=== PATIENT | male | born 1940 | race Caucasian/White ===

== ENCOUNTER 2018-01-25 06:32 | Inpatient (IN) | payer MEDICARE, BC ==
[~2018-01-25 06:32] MED LIST: Buffered Lidocaine 0.9% SYRIN* 5 ML/SYR SYRINGE INTRADERM ONE
[2018-01-25] MEDS ORDERED: ceFAZolin 2 GM PREMIX in ORs 2 GM/50 ML BAG IVPB ONE (07:08)
[2018-01-25] MEDS ORDERED: Bacitracin IV* 50,000 UNITS INJ ONE (08:00)
[2018-01-25] MEDS ORDERED: Lidocaine 1% MPF wEPI 200,000* 30 ML SDV ONE (08:00)
[2018-01-25] MEDS ORDERED: Thrombin 5,000 UNITS* 1 APPLIC KIT - topical use - TOPICAL ONE (08:00)
[2018-01-25] MEDS ORDERED: fentaNYL* 50 MCG/ML 2 ML VIAL (100 MCG VIAL) ONE ×4 (08:06→14:13)
[2018-01-25] MEDS ORDERED: Propofol* 10 MG/ML 20 ML BTL ONE ×2 (08:06→13:02)
[2018-01-25] MEDS ORDERED: Lidocaine 2% PF * 5 ML VIAL ONE (08:06)
[2018-01-25] MEDS ORDERED: Rocuronium* 10 MG/ML VIAL ONE ×2 (08:06→10:29)
[2018-01-25] MEDS ORDERED: Midazolam* 1 MG/ML 2 ML VIAL (2 MG) ONE ×2 (08:42→09:41)
[2018-01-25] MEDS ORDERED: Dexamethasone IV* 4 MG/ML 1 ML (4 MG) ONE (10:22)
[2018-01-25] MEDS ORDERED: Naloxone* 0.4 MG/ML 1 ML VIAL IV PRN (10:58)
[2018-01-25] MEDS ORDERED: DiMENhydriNATE IV* 50 MG/ML VIAL IV PUSH PRN (10:58)
[2018-01-25] MEDS ORDERED: Glycopyrrolate IV* 0.2 MG/ML 1 ML VIAL ONE (13:21)
[2018-01-25] MEDS ORDERED: Neostigmine Methylsulfate* 2 MG/2 ML SYRINGE ONE (13:21)
[2018-01-25] MEDS ORDERED: Ondansetron INJ* 2 MG/ML VIAL IV PRN (13:28)
[2018-01-25] MEDS ORDERED: Acetaminophen TAB* 325 MG PO PRN (13:28)
[2018-01-25] MEDS: fentaNYL* 50 MCG/ML 2 ML VIAL (100 MCG VIAL) IV PRN ×5 (14:00→14:13)
[2018-01-25] MEDS ORDERED: HYDROmorphone INJ1* 1 MG/ML SYRINGE ONE (15:21)
[2018-01-25] MEDS ORDERED: Ramipril CAP* 2.5 MG PO ONE (16:00)
[2018-01-25] MEDS ORDERED: Morphine VIAL* 4 MG/ML VIAL (1 ml vial) IV PRN ×2 (16:46→16:48)
[2018-01-25] MEDS: HYDROcodone/ACETAMIN 5-325 MG* 1 TAB PO PRN ×2 (16:49→21:32)
[2018-01-25 17:21] LABS: ABS Basophils 0 10^3/ul (0-0.2); ABS Eosinophils 0 10^3/ul (0-0.6); ABS Lymphocytes 0.7 10^3/ul (1.0-4.8); ABS Monocytes 0.4 10^3/ul (0-0.8); ABS Neutrophils 12.1 10^3/ul (1.5-7.7); ABS Nucleated RBC 0 10^3/ul; Eosinophil % 0 %; Hematocrit 39 % (42-52); Hemoglobin 12.9 g/dl (14.0-18.0); Mean Corpuscular HGB Conc 33 g/dl (31-36); Mean Corpuscular Hemoglobin 29 pg (27-31); Mean Corpuscular Volume 87 fL (80-94); Mean Platelet Volume 8.3 fL (7.4-10.4); Nucleated Red Blood Cells % 0; Platelet Count 238 10^3/ul (150-450); Red Blood Count 4.44 10^6/ul (4.00-5.40); Red Cell Distribution Width 15 % (10.5-15); White Blood Count 13.2 10^3/ul (3.5-10.8)
[2018-01-25 19:01] LABS: EGFR Non-African American 94.9 (>60)
[2018-01-25] MEDS ORDERED: Docusate CAP* 100 MG PO SCH (21:00)
--- NOTE | 2018-01-25 22:04 | PN ---
Progress Note - Progress Note Date of Service: 01/25/18 SOAP: Subjective: []Patient is doing very well. Tolerated procedure well. Voids, Tolerates PO well. RLE pain is resolved. Objective: [] VSS. Wounds s ,c, d AAOxe DIANE, CN II-XII grossly intact Motor 5/5 all extremities Sensory grossly intact to light touch Assessment: []77 yo m POD#0 Rtr L3-4 MIS TLIF Plan: []Monitor VS, Neurochecks Encourage ambulation. Denis Cali MD
[2018-01-25] MEDS: Morphine VIAL* 4 MG/ML VIAL (1 ml vial) IV PRN (23:03)
--- NOTE | 2018-01-25 23:53 | CONS ---
CC: Dr. Cali; Harvinder Guevara NP; Dr. Jimbo Tesfaye.* CONSULTATION REPORT: DATE OF CONSULT: 01/25/18 PRIMARY CARE PROVIDER: Harvinder Guevara NP MY ATTENDING PHYSICIAN WHILE IN THE HOSPITAL: Dr. Jaqueline Patel (report dictated by Jac Kidd NP). REQUESTING PHYSICIANS IN CONSULT: Dr. Tesfaye and Dr. Cali. REASON FOR MEDICAL CONSULTATION: Evaluation of bradycardia. HISTORY OF PRESENT ILLNESS: I will refer you to Dr. Cali' H and P for further details. In short, Mr. Hinton is a 77-year-old male patient. He has a history of CAD, PR, hypertension, hyperlipidemia, hypothyroidism, GERD who also has been having significant amount of lumbar radiculopathy and back pain. He sought care with Dr. Cali, grade 1 anterolisthesis of the lumbar spine was found. It was felt that he would benefit from a L3-4 TLIF. He underwent the procedure today, but postoperatively it was noted by Anesthesia that the patient did have episodes of his heart rate going down as well as in the upper 30s. His other vital signs had remained stable. His blood pressure had remained stable. However, there was concern for the bradycardia. The patient is evaluated in the PACU now. He states that his resting heart rate does run around 60, in fact it was alluded in his preop note that he is not on a beta cherise because of the bradycardia. He denies any chest pain or any shortness of breath. He states he does not feel lightheaded. He denies having any abdominal pain. He states he does not feel nauseated. He states that his biggest complaint was that he was having pain in his back, which is now better controlled with IV pain medication. He denies having any fevers or chills recently and no recent change in medications, but because of the bradycardia, we were asked to evaluate in consult. PAST MEDICAL HISTORY: Significant for: 1. CAD. 2. PR. 3. Hyperlipidemia. 4. Hypertension. 5. Hypothyroidism. 6. GERD. 7. CAD. PAST SURGICAL HISTORY: 1. He has had cardiac catheterization. 2. Laparoscopic cholecystectomy. 3. Bilateral total hip arthroplasty. 4. Hernia repair. 5. L3-4 TLIF done today. MEDICATIONS: Home meds according to the preop list include: 1. Oxycodone 5 mg every 4 hours as needed. 2. Ramipril 2.5 mg daily. 3. Protonix 40 mg daily. 4. Synthroid 100 mcg p.o. daily. 5. Lasix 40 mg daily. 6. Colace 100 mg p.o. at bedtime. 7. Lipitor 80 mg daily. 8. Aspirin 81 mg daily. 9. Alpha-lipoic acid 200 mg p.o. daily. ALLERGIES: Allergies to medications include NEOSPORIN and TAPE. FAMILY HISTORY: Both of his parents had strokes. Father had a history of hypertension. SOCIAL HISTORY: He is a former smoker. He does not drink alcohol. Surrogate decision maker is his . REVIEW OF SYSTEMS: There is no documented fever. He denied having any significant weight change. There was no double vision. He denies having any ear discharge. There was no rhinorrhea. There was no sore throat, no thyroid enlargement. He denied having any chest pain. There was no orthopnea, no nocturnal dyspnea. There was no abdominal pain. No nausea. No vomiting. No dysuria. No frequency. There was no seizure. No loss of consciousness. No pruritus. No skin ulcerations. Review of 14 systems completed. All others negative. PHYSICAL EXAMINATION: Vital Signs: Blood pressure 170/78, pulse 92, respirations 20, O2 sat 99%, temperature 96.8. Generally, at this time, Mr. Hinton is a 77- year-old male patient. He is sitting in the PACU bed. He does not appear to be in any acute distress. He appears to be well nourished and well developed. HEENT: Head atraumatic and normocephalic. Eyes: EOMs are intact. Sclerae anicteric and not pale. Neck was supple. Throat: Oral mucosa appears to be moist. No oropharyngeal erythema. Heart: Sounds S1, S2. He had a regular rate and rhythm. No murmurs, rubs, or gallops. Lungs: Clear to auscultation bilaterally. There was no wheezes, rales, or rhonchi. Abdomen: Soft. It was flat, nontender. Bowel sounds were present. Extremities: Pulses were 2+ throughout. He had 5/5 dorsi and plantar flexion in the lower extremities. He is moving upper extremities with 5/5 strength. Neurologically , he is awake, alert and oriented x3. No gross focal deficits. Skin is intact with the exception he has an incision to the lumbar spine, which is covered with a dressing; it is clean, dry, and intact. LABORATORY DATA/DIAGNOSTIC STUDIES: Preop WBC of 8.6, RBC of 4.49, hemoglobin of 13.1, hematocrit of 39, and platelet count of 255. INR 0.92. Sodium 139, potassium 4.6, chloride 103, bicarb 29, BUN 16, creatinine 0.84, glucose 94. Preop urine negative. He had a preoperative EKG, which revealed a normal sinus rhythm, rate of 61 with a PVC. Again, no ST elevations or T wave inversions noted. He also had a preop chest x-ray, which showed hyperinflation consistent with COPD with an atelectasis versus pleural or parenchymal scarring of the lungs bilaterally. Old medical records reviewed. ASSESSMENT AND PLAN: Mr. Hinton is a 77-year-old male patient coming into the neurosurgical services today for an elective L3-4 TLIF, and perioperatively, it was noted that he was bradycardic. We were asked to evaluate in consult. My recommendations at this point are: 1. L3-4 transforaminal lumbar interbody fusion. I will defer the management to Dr. Cali and his team. 2. Intraoperative bradycardia, again at this point, I think we can continue to monitor. His heart rate is in the 90s. It certainly could have been anesthetic related, could have been vasovagal related to the underlying procedure. We will avoid rate controlling agents. We will continue to monitor. I am going to place him on telemetry overnight. Should it persist, we could consider formal Cardiology consult. We will continue to monitor. 3. Hypothyroid. Continue his Synthroid. 4. Hyperlipidemia. Continue statin therapy. 5. Hypertension. Continue meds as prescribed. 6. Gastroesophageal reflux disease. Continue PPI therapy. 7. Coronary artery disease. He is on statin therapy. He is not on a beta cherise because of bradycardia in the past. We will hold, I would recommend getting him back on his aspirin when it is deemed safe by Dr. Cali and his team. 8. DVT prophylaxis: Deferred to the primary team. 9. Code status: Full code. 10. Fluids, electrolytes, and nutrition. I would recommend a heart-healthy diet. TIME SPENT: Time spent on the admission was 60 minutes. Greater than half that time was spent [id number] with the patient obtaining my history and physical, the other half time was spent going over the plan of care with the patient, implementing the plan of care. I did discuss the plan of care with my attending, Dr. Patel. She is in agreement. JAC KIDD, CUSTOMER EXPERIENCE SPECIALIST [id number]/CPS #: [id number] JUAN
[2018-01-26] MEDS: HYDROcodone/ACETAMIN 5-325 MG* 1 TAB PO PRN ×3 (01:53→10:57)
[2018-01-26] MEDS: Morphine VIAL* 4 MG/ML VIAL (1 ml vial) IV PRN ×4 (04:16→16:33)
[2018-01-26] MEDS: Levothyroxine TAB* 100 MCG TAB PO SCH (05:50)
[2018-01-26] MEDS ORDERED: Magnesium Sulfate 2 GM IV* 2 GM/50 ML BAG IVPB ONE (05:56)
--- NOTE | 2018-01-26 07:08 | OP ---
DATE OF SURGERY: 01/25/18 - ROOM #343 DATE OF : 38 SURGEON: Leatha Cali MD. SENIOR MARKETING SPECIALIST: MOJGAN Berrios. The case was done with assistance of a surgical PA because of the complexity of the case. ANESTHESIA: General. PRE-OP DIAGNOSES: Degenerative disk disease and spondylolisthesis at L3-4. POST-OP DIAGNOSES: Degenerative disk disease and spondylolisthesis at L3-4. OPERATIVE PROCEDURE: The patient underwent right L3-4 minimal invasive TLIF with PEEK interbody expandable cage with local bone graft, iliac crest autograft from a separate incision, and DBX with bilateral pedicle screws at L3 and L4 with stereotactic navigation. ESTIMATED BLOOD LOSS: 40 cc. COMPLICATIONS: None. SUMMARY: The patient is a very pleasant 77-year-old gentleman with complaints of back pain radiating to mostly of the right lower extremity with MRI findings consisting with degenerative disk at L3-4 with grade 1 spondylolisthesis and significant canal stenosis and disk herniation. The patient was offered the option of surgical intervention after failing conservative modalities. After explaining expectations, limitations, and possible complication of the procedure with the patient and his family including his and his son with complications including, but not limited to, bleeding, infection, risk of injury to adjacent structures, coma, paralysis, , need for additional procedure, anesthesia risk, stroke, blindness, cancer, instability, hardware failure, adjacent level disease, pseudoarthrosis, proximal junctional kyphosis, spinal fluid leak, need for additional procedures, anesthesia risk. The patient was agreeable to proceed with surgery. Informed consent was obtained. The patient understood that his condition may not improve and in fact may get worse after the surgery and that he may need to have additional procedure in the future. He also understood that the operative plan may be modified according to intraoperative findings and conditions and that he may require additional procedures in the future, possible prolonged ICU course, and need for tracheostomy, gastrostomy, or similar procedures. DESCRIPTION OF PROCEDURE: The patient was brought to the operating room and was placed under general anesthesia by the anesthesia team. He was carefully positioned prone on the Wellington table and all bony prominences were meticulously padded. His skin was prepped and draped in the standard fashion and after appropriate surgical pause and patient identification, a small incision over the left iliac crest was performed with a #10 surgical blade after infiltrating the skin with local anesthetic. The incision was carried down with Bovie cautery and the Corex needle was inserted with the assistance of a Jamshidi needle and wire. Autologous bone graft from the iliac crest was then harvested and the navigation star pin was inserted through the same incision and secured in the iliac crest. Intraoperative O-arm imaging was obtained and the patient's data was transferred into the navigation platform. Under stereotactic navigation the projection of the pedicle screw projectors were marked on the skin and 2 paramedian incisions over the level of L3-4 were marked on the skin. The skin was infiltrated with local anesthetic and #10 surgical blade was used to incise the right side first and then the left. Under stereotactic navigation the pedicles were canalized at L3 and L4 bilaterally and [employer] ATS 6.5 x 45 mm screws were placed in all 4 pedicles. Then attention was placed to perform the arthrodesis part of the procedure. With the use of navigated dilators a 22 mm METRx tubular retractor was introduced into the field and right hemilamina of L3 and the L3-4 facet was exposed after removing a small amount of residual paraspinal musculature. High speed drill was used to perform a laminectomy extending the midline and also a medial facetectomy. The ligament flavum was gently elevated and the dura was exposed in both sides of the midline. Pedicle of L4 on the right was skeletonized in the medial and superior aspect and after gently retracting the thecal sac medially along with the nerve root a standard diskectomy was performed after incising the annulus fibrosus with #15 surgical blade. Pituitary rongeurs were used to perform the diskectomy while the patient's disk space was prepared in standard fashion with serial dilators, Kerrison punches, and curettes. After of the end plates an ELEVATE expandable PEEK with titanium coated interbody spacer from [employer] with 9 to 15 mm height x 28 mm length was inserted and expanded after been filled with locally harvested bone graft, DBX, and iliac crest bone graft while the rest of the bone graft material was packed into the disk space prior to insertion of the cage. After the confirmation of meticulous hemostasis and copious irrigation the tubular retractor was gently removed and the dorsal fascia was approximated with interrupted 0 Vicryl sutures then two cobalt chrome rods were inserted through the same incisions and secured in place with screw head caps. Intraoperative O- arm imaging was then obtained and confirmed excellent placement of all hardware. The inserters as well as the extenders of the screws were removed after the screw head caps were finally tightened and after removing off of the navigation star the wounds were copiously irrigated and after confirmation of meticulous hemostasis and meticulous inspection the dorsal fascial defect was approximated with 0 interrupted Vicryl sutures while the subcutaneous tissue was approximated with 2-0 interrupted Vicryl sutures. The wounds were covered with Dermabond. At the end of the procedure all counts were reported to be correct. The patient remained hemodynamically stable throughout the case. I was present, scrubbed for the entirety of the case. The case was done with assistance of surgical PA because of the complexity of the case. The patient was then turned supine, was extubated, and was transferred to Recovery in excellent condition, moving all extremities well. [id number]/CPS #: [id number] JUAN
[2018-01-26] MEDS: Ramipril CAP* 2.5 MG PO SCH (08:09)
[2018-01-26] MEDS: Atorvastatin* 80 MG TAB PO SCH (08:10)
[2018-01-26] MEDS: Omeprazole CAP* 20 MG PO SCH (08:10)
[2018-01-26] MEDS ORDERED: Furosemide TAB* 40 MG PO SCH (09:00)
[2018-01-26] MEDS ORDERED: oxyCODONE TAB* 5 MG TAB PO PRN ×2 (12:41→12:42)
[2018-01-26] MEDS ORDERED: Cyclobenzaprine TAB* 10 MG PO PRN (12:42)
--- NOTE | 2018-01-26 16:41 | PN ---
Subjective Date of Service: 01/26/18 Interval History: SR with occasional PVCs on tele. Resting in bed on exam Family at bedside Nurse reports back pain is not controlled with Loretto 2 tabs as patient is often needing morphine IV. Patient reports he usually takes oxycodone at home for back pain. Reports he takes 1 to 3 tabs of 5 mg oxycodone up to 3 times a day. Urinating without difficulty. Last BM yesterday Denies cp, sob, palpitations, n/v/d, numbness/tingling, weakness, lightheadedness. Objective Active Medications: Acetaminophen (Tylenol Tab*) 650 mg PO Q4H PRN PRN Reason: PAIN Atorvastatin Calcium (Lipitor*) 80 mg PO QAM [facility] Last Admin: 01/26/18 08:10 Dose: 80 mg Cyclobenzaprine HCl (Flexeril Tab*) 10 mg PO BID PRN PRN Reason: PAIN Last Admin: 01/26/18 16:04 Dose: 10 mg Docusate Sodium (Colace Cap*) 200 mg PO BEDTIME [facility] Levothyroxine Sodium (Synthroid Tab*) 100 mcg PO DAILY@0600 [facility] Last Admin: 01/26/18 05:50 Dose: 100 mcg Magnesium Hydroxide (Milk Of Magnesia Liq*) 30 ml PO DAILY PRN PRN Reason: CONSTIPATION Morphine Sulfate (Morphine Vial*) 2 mg IV ONCE PRN PRN Reason: PAIN Last Admin: 01/25/18 16:56 Dose: 2 mg Morphine Sulfate (Morphine Vial*) 2 mg IV Q4H PRN PRN Reason: PAIN Last Admin: 01/26/18 16:33 Dose: 2 mg Omeprazole (Prilosec Cap*) 20 mg PO DAILY@0730 [facility] Last Admin: 01/26/18 08:10 Dose: 20 mg Ondansetron HCl (Zofran Inj*) 4 mg IV Q6H PRN PRN Reason: NAUSEA/VOMITING Oxycodone HCl (Roxycodone Tab*) 5 mg PO Q6H PRN PRN Reason: PAIN Oxycodone HCl (Roxycodone Tab*) 10 mg PO Q6H PRN PRN Reason: PAIN Last Admin: 01/26/18 13:35 Dose: 10 mg Ramipril (Altace Cap*) 2.5 mg PO QAM [facility] Last Admin: 01/26/18 08:09 Dose: 2.5 mg Vital Signs - 8 hr 01/26/18 01/26/18 01/26/18 10:57 11:49 11:54 Temperature 98.1 F Pulse Rate 79 Respiratory 16 16 20 Rate Blood Pressure 156/66 (mmHg) O2 Sat by Pulse 100 Oximetry 01/26/18 01/26/18 01/26/18 13:35 15:58 16:04 Temperature Pulse Rate Respiratory 16 16 16 Rate Blood Pressure (mmHg) O2 Sat by Pulse Oximetry 01/26/18 16:33 Temperature Pulse Rate Respiratory 16 Rate Blood Pressure (mmHg) O2 Sat by Pulse Oximetry Oxygen Devices in Use Now: None Appearance: Comfortable, cooperative, NAD Eyes: PERRLA Ears/Nose/Mouth/Throat: Mucous Membranes Moist Neck: NL Appearance and Movements; NL JVP Respiratory: Symmetrical Chest Expansion and Respiratory Effort, Clear to Auscultation Cardiovascular: NL Sounds; No Murmurs; No JVD, RRR, No Edema Abdominal: NL Sounds; No Tenderness; No Distention Extremities: No Edema Skin: No Rash or Ulcers Neurological: Alert and Oriented x 3, NL Sensation, NL Muscle Strength and Tone Nutrition: Taking PO's Result Diagrams: 01/25/18 17:12 01/25/18 17:00 Additional Lab and Data: Laboratory Results - last 24 hr 01/25/18 01/25/18 17:00 17:12 WBC 13.2 H RBC 4.44 Hgb 12.9 L Hct 39 L MCV 87 MCH 29 MCHC 33 RDW 15 Plt Count 238 MPV 8.3 Neut % (Auto) 91.7 Lymph % (Auto) 5.0 Deuel % (Auto) 3.0 Eos % (Auto) 0 Baso % (Auto) 0.3 Absolute Neuts (auto) 12.1 H Absolute Lymphs (auto) 0.7 L Absolute Monos (auto) 0.4 Absolute Eos (auto) 0 Absolute Basos (auto) 0 Absolute Nucleated RBC 0 Nucleated RBC % 0 Sodium 139 Potassium 4.5 Chloride 104 Carbon Dioxide 26 Anion Gap 9 BUN 17 Creatinine 0.79 Est GFR ( Amer) 114.8 Est GFR (Non-Af Amer) 94.9 BUN/Creatinine Ratio 21.5 H Glucose 148 H Calcium 9.1 Magnesium 1.7 L TSH 0.54 Assess/Plan/Problems-Billing Assessment: 77 year old male pmh CAD, [place], hypertension, hyperlipidema, hypothyroid, gerd; who is s/p L3-L4 TLIF who was noted to be bradycardic june operatively therefore we are consulting - Patient Problems (1) Anterolisthesis Comment: - POD #1 L3- L4 TLIF - Up walking with assistance - Pain medications changed from Loretto to Oxycodone (okay'd by Neurosurgeon) (2) Bradycardia Comment: - SR in the 70s with occasional PVCs on tele - Continue tele (3) Hypertension Comment: - Continue meds as prescribed (4) Hyperlipidemia Comment: - Cont statin (5) CAD (coronary artery disease) Comment: - Hx of [place] with 3 stents - Per neuro; okay to restart ASA 3 to 5 days post op (6) Hypothyroid Comment: - Cont medications as prescribed (7) DVT prophylaxis Comment: - SCDs in place - Patient ambulating (8) Full code status Comment: - Full Code Status and Disposition: Thank you for allowing us to participate in this patient's care. Attending: Jaqueline Patel
--- NOTE | 2018-01-26 16:58 | PN ---
Progress Note - Progress Note Date of Service: 01/26/18 SOAP: Subjective: [] No events ON. Patient is doing very well. Tolerated procedure well yesterday. Voids, Tolerates PO well. Preop RLE pain is resolved. Objective: []VSS. Wounds s ,c, d AAOx3 DIANE, CN II-XII grossly intact Motor 5/5 all extremities Sensory grossly intact to light touch Assessment: []77 yo m POD#1 Rtr L3-4 MIS TLIF Plan: []Monitor VS, Neurochecks Encourage ambulation. Pain control. Muscle relaxants. XR reveals good placement of hardware, good alignment of his lumbar spine. PT DC planning Appreciate IM care. Denis Cali MD
[2018-01-26] MEDS ORDERED: Diazepam TAB(*) 5 MG ONE (18:36)
[2018-01-26] MEDS ORDERED: oxyCODONE/Acetamin 5/325 MG* TAB ONE (18:36)
[2018-01-26] MEDS ORDERED: Morphine VIAL* 4 MG/ML VIAL (1 ml vial) IV PRN (19:01)
[2018-01-26] MEDS ORDERED: oxyCODONE/Acetamin 5/325 MG* TAB PO PRN (19:02)
[2018-01-26] MEDS: Docusate CAP* 100 MG PO SCH (20:07)
[2018-01-26] MEDS: oxyCODONE/Acetamin 5/325 MG* TAB PO PRN (20:11)
[2018-01-27] MEDS: oxyCODONE/Acetamin 5/325 MG* TAB PO PRN ×6 (00:15→20:20)
[2018-01-27] MEDS: Diazepam TAB(*) 5 MG PO PRN ×3 (03:05→19:31)
[2018-01-27] MEDS: Levothyroxine TAB* 100 MCG TAB PO SCH (05:44)
[2018-01-27 05:57] LABS: Hematocrit 34 % (42-52); Hemoglobin 11.3 g/dl (14.0-18.0); Mean Corpuscular HGB Conc 33 g/dl (31-36); Mean Corpuscular Hemoglobin 29 pg (27-31); Mean Corpuscular Volume 88 fL (80-94); Mean Platelet Volume 8.2 fL (7.4-10.4); Platelet Count 177 10^3/ul (150-450); Red Blood Count 3.87 10^6/ul (4.00-5.40); Red Cell Distribution Width 15 % (10.5-15); White Blood Count 8.7 10^3/ul (3.5-10.8)
[2018-01-27 06:15] LABS: EGFR Non-African American 114.7 (>60)
[2018-01-27 06:42] LABS: Monocytes % 2 %
[2018-01-27 06:51] LABS: ABS Basophils 0.1 10^3/ul (0-0.2); ABS Eosinophils 0.2 10^3/ul (0-0.6); ABS Lymphocytes 1.3 10^3/ul (1.0-4.8); ABS Monocytes 0.9 10^3/ul (0-0.8); ABS Neutrophils 6.4 10^3/ul (1.5-7.7); ABS Nucleated RBC 0 10^3/ul
[2018-01-27] MEDS: Magnesium Hydroxide LIQ* 30 ML UDC PO PRN (08:02)
[2018-01-27] MEDS: Omeprazole CAP* 20 MG PO SCH (08:02)
[2018-01-27] MEDS: Atorvastatin* 80 MG TAB PO SCH (08:02)
[2018-01-27] MEDS: Ramipril CAP* 2.5 MG PO SCH (08:02)
--- NOTE | 2018-01-27 12:39 | PN ---
Progress Note - Progress Note Date of Service: 01/27/18 SOAP: Subjective: [] No events ON. Patient is doing very well. Voids, Tolerates PO well. Preop RLE pain is resolved. Some back pain at incision site. Has brace. Objective: [] VSS. Wounds s ,c, d AAOx3 DIANE, CN II-XII grossly intact Motor 5/5 all extremities Sensory grossly intact to light touch Assessment: []77 yo m POD#2 Rtr L3-4 MIS TLIF Plan: [] Monitor VS, Neurochecks Encourage ambulation. Pain control. Muscle relaxants. PT DC planning. Appreciate IM care. Denis Cali MD
--- NOTE | 2018-01-27 15:11 | PN ---
Subjective Date of Service: 01/27/18 Interval History: SR with occasional PVCs on tele. Average rate 77 bpm Resting in reclinder chair on assessment with family at bedside Reports back pain is mildly improved today. Denies dizziness, lightheadedness at rest or with position change, cp, palpitations, sob, weakness, n/v/d. Objective Active Medications: Acetaminophen (Tylenol Tab*) 650 mg PO Q4H PRN PRN Reason: PAIN Atorvastatin Calcium (Lipitor*) 80 mg PO QAM [facility] Last Admin: 01/27/18 08:02 Dose: 80 mg Diazepam (Valium Tab(*)) 5 mg PO Q8H PRN PRN Reason: MUSCLE SPASMS Last Admin: 01/27/18 11:35 Dose: 5 mg Docusate Sodium (Colace Cap*) 200 mg PO BEDTIME [facility] Last Admin: 01/26/18 20:07 Dose: 200 mg Levothyroxine Sodium (Synthroid Tab*) 100 mcg PO DAILY@0600 [facility] Last Admin: 01/27/18 05:44 Dose: 100 mcg Magnesium Hydroxide (Milk Of Magnzenaida Liq*) 30 ml PO DAILY PRN PRN Reason: CONSTIPATION Last Admin: 01/27/18 08:02 Dose: 30 ml Morphine Sulfate (Morphine Vial*) 2 mg IV ONCE PRN PRN Reason: PAIN Last Admin: 01/25/18 16:56 Dose: 2 mg Morphine Sulfate (Morphine Vial*) 1 mg IV Q2H PRN PRN Reason: PAIN Last Admin: 01/26/18 19:56 Dose: 1 mg Omeprazole (Prilosec Cap*) 20 mg PO DAILY@0730 [facility] Last Admin: 01/27/18 08:02 Dose: 20 mg Ondansetron HCl (Zofran Inj*) 4 mg IV Q6H PRN PRN Reason: NAUSEA/VOMITING Oxycodone/Acetaminophen (Percocet 5/325 Tab*) 1 tab PO Q4H PRN PRN Reason: PAIN Oxycodone/Acetaminophen (Percocet 5/325 Tab*) 2 tab PO Q4H PRN PRN Reason: PAIN Last Admin: 01/27/18 12:35 Dose: 2 tab Ramipril (Altace Cap*) 2.5 mg PO QAM [facility] Last Admin: 01/27/18 08:02 Dose: 2.5 mg Vital Signs - 8 hr 01/27/18 01/27/18 01/27/18 07:31 08:00 08:02 Temperature 98.4 F Pulse Rate 72 Respiratory 16 18 18 Rate Blood Pressure 152/53 (mmHg) O2 Sat by Pulse 96 Oximetry 01/27/18 01/27/18 01/27/18 09:31 10:02 11:33 Temperature 98.2 F Pulse Rate 80 Respiratory 18 18 16 Rate Blood Pressure 145/59 (mmHg) O2 Sat by Pulse 96 Oximetry 01/27/18 01/27/18 01/27/18 11:35 12:35 14:24 Temperature Pulse Rate Respiratory 18 18 18 Rate Blood Pressure (mmHg) O2 Sat by Pulse Oximetry 01/27/18 14:25 Temperature Pulse Rate Respiratory 18 Rate Blood Pressure (mmHg) O2 Sat by Pulse Oximetry Oxygen Devices in Use Now: None Appearance: Comfortable, NAD Eyes: PERRLA Ears/Nose/Mouth/Throat: Clear Oropharnyx, Mucous Membranes Moist Neck: NL Appearance and Movements; NL JVP Respiratory: Symmetrical Chest Expansion and Respiratory Effort, Clear to Auscultation Cardiovascular: NL Sounds; No Murmurs; No JVD, RRR, No Edema Abdominal: NL Sounds; No Tenderness; No Distention Lymphatic: No Cervical Adenopathy Extremities: No Edema Skin: No Rash or Ulcers Neurological: Alert and Oriented x 3 Nutrition: Taking PO's Result Diagrams: 01/27/18 05:40 01/27/18 05:40 Additional Lab and Data: Laboratory Results - last 24 hr 01/27/18 01/27/18 05:40 05:40 WBC 8.7 RBC 3.87 L Hgb 11.3 L Hct 34 L MCV 88 MCH 29 MCHC 33 RDW 15 Plt Count 177 MPV 8.2 Neut % (Auto) Not Reportable Lymph % (Auto) Not Reportable [place] % (Auto) Not Reportable Eos % (Auto) Not Reportable Baso % (Auto) Not Reportable Absolute Neuts (auto) 6.4 Absolute Lymphs (auto) 1.3 Absolute Monos (auto) 0.9 H Absolute Eos (auto) 0.2 Absolute Basos (auto) 0.1 Absolute Nucleated RBC 0 Neutrophils % 77 Lymphocytes % 19 Monocytes % 2 Eosinophils % 1 Basophils % 1 Nucleated RBC % Not Reportable Nucleated RBCs/100 WBC 0 Normal RBC Morphology Not Reportable Microcytosis 1+ Mitchel Cells 2+ Sodium 137 Potassium 3.9 Chloride 105 Carbon Dioxide 29 Anion Gap 3 BUN 12 Creatinine 0.67 Est GFR ( Amer) 138.8 Est GFR (Non-Af Amer) 114.7 BUN/Creatinine Ratio 17.9 Glucose 106 H Calcium 8.6 Magnesium 2.0 Assess/Plan/Problems-Billing Assessment: 77 year old male pmh CAD, [place], hypertension, hyperlipidema, hypothyroid, gerd; who is s/p L3-L4 TLIF who was noted to be bradycardic june operatively therefore we are consulting - Patient Problems (1) Anterolisthesis Comment: - POD #2 L3- L4 TLIF - Up walking with assistance - Management per neurosurgeon and team (2) Bradycardia Comment: - SR in the 70s with occasional PVCs on tele - May discontinue tele as patient has not been bradycardic and is asymptomatic (3) Hypertension Comment: - Continue meds as prescribed (4) Hyperlipidemia Comment: - Cont statin (5) CAD (coronary artery disease) Comment: - Hx of [place] with 3 stents - Per neuro; okay to restart ASA 3 to 5 days post op (6) Hypothyroid Comment: - Cont medications as prescribed (7) Abnormal CBC Comment: - CBC minorly abnormal today with multiple "not reportable" results. I suspect this is a technical error therefore will be repeated tomorrow (8) DVT prophylaxis Comment: - SCDs in place - Patient ambulating (9) Full code status Comment: - Full Code Status and Disposition: Thank you for allowing us to participate in this patient's care. Attending: Jamye Rodgers
[2018-01-27] MEDS: Docusate CAP* 100 MG PO SCH (19:31)
[2018-01-28] MEDS: oxyCODONE/Acetamin 5/325 MG* TAB PO PRN ×6 (01:14→22:03)
[2018-01-28] MEDS: Diazepam TAB(*) 5 MG PO PRN ×3 (03:18→20:06)
[2018-01-28] MEDS: Levothyroxine TAB* 100 MCG TAB PO SCH (05:21)
[2018-01-28 06:18] LABS: ABS Basophils 0 10^3/ul (0-0.2); ABS Eosinophils 0.2 10^3/ul (0-0.6); ABS Lymphocytes 1.2 10^3/ul (1.0-4.8); ABS Monocytes 0.8 10^3/ul (0-0.8); ABS Neutrophils 5.6 10^3/ul (1.5-7.7); ABS Nucleated RBC 0 10^3/ul; Eosinophil % 3.1 %; Hematocrit 34 % (42-52); Hemoglobin 11.3 g/dl (14.0-18.0); Lymphocyte % 15.1 %; Mean Corpuscular HGB Conc 34 g/dl (31-36); Mean Corpuscular Hemoglobin 30 pg (27-31); Mean Corpuscular Volume 88 fL (80-94); Mean Platelet Volume 8.4 fL (7.4-10.4); Nucleated Red Blood Cells % 0.1; Platelet Count 162 10^3/ul (150-450); Red Blood Count 3.83 10^6/ul (4.00-5.40); Red Cell Distribution Width 15 % (10.5-15); White Blood Count 7.8 10^3/ul (3.5-10.8)
[2018-01-28] MEDS: Omeprazole CAP* 20 MG PO SCH (07:57)
[2018-01-28] MEDS: Atorvastatin* 80 MG TAB PO SCH (07:57)
[2018-01-28] MEDS: Ramipril CAP* 2.5 MG PO SCH (07:57)
--- NOTE | 2018-01-28 16:44 | PN ---
Subjective Date of Service: 01/28/18 Interval History: Resting in bed on assessment with at bedside Noted to have elevated BP this morning at 170/75. Repeat BP this afternoon 112/ 58. Patient reports he was in pain this morning. Patient is no longer on tele, but no bradycardia noted on vital sign assessments. Patient denies lightheadedness, dizziness, cp, palpitations, n/v/d, visual changes, leg/calf pain, sob. Reports back pain is better controlled today. Objective Active Medications: Acetaminophen (Tylenol Tab*) 650 mg PO Q4H PRN PRN Reason: PAIN Atorvastatin Calcium (Lipitor*) 80 mg PO QAM [facility] Last Admin: 01/28/18 07:57 Dose: 80 mg Diazepam (Valium Tab(*)) 5 mg PO Q8H PRN PRN Reason: MUSCLE SPASMS Last Admin: 01/28/18 11:57 Dose: 5 mg Docusate Sodium (Colace Cap*) 200 mg PO BEDTIME [facility] Last Admin: 01/27/18 19:31 Dose: 200 mg Levothyroxine Sodium (Synthroid Tab*) 100 mcg PO DAILY@0600 [facility] Last Admin: 01/28/18 05:21 Dose: 100 mcg Magnesium Hydroxide (Milk Of Magnesia Liq*) 30 ml PO DAILY PRN PRN Reason: CONSTIPATION Last Admin: 01/27/18 08:02 Dose: 30 ml Morphine Sulfate (Morphine Vial*) 2 mg IV ONCE PRN PRN Reason: PAIN Last Admin: 01/25/18 16:56 Dose: 2 mg Morphine Sulfate (Morphine Vial*) 1 mg IV Q2H PRN PRN Reason: PAIN Last Admin: 01/26/18 19:56 Dose: 1 mg Omeprazole (Prilosec Cap*) 20 mg PO DAILY@0730 [facility] Last Admin: 01/28/18 07:57 Dose: 20 mg Ondansetron HCl (Zofran Inj*) 4 mg IV Q6H PRN PRN Reason: NAUSEA/VOMITING Oxycodone/Acetaminophen (Percocet 5/325 Tab*) 1 tab PO Q4H PRN PRN Reason: PAIN Oxycodone/Acetaminophen (Percocet 5/325 Tab*) 2 tab PO Q4H PRN PRN Reason: PAIN Last Admin: 01/28/18 13:34 Dose: 2 tab Ramipril (Altace Cap*) 2.5 mg PO QAM [facility] Last Admin: 01/28/18 07:57 Dose: 2.5 mg Vital Signs - 8 hr 01/28/18 01/28/18 01/28/18 09:24 11:34 11:57 Temperature 97.7 F Pulse Rate 76 Respiratory 18 16 18 Rate Blood Pressure 112/58 (mmHg) O2 Sat by Pulse 96 Oximetry 01/28/18 01/28/18 01/28/18 13:34 13:36 16:26 Temperature Pulse Rate Respiratory 20 18 18 Rate Blood Pressure (mmHg) O2 Sat by Pulse Oximetry 01/28/18 16:27 Temperature Pulse Rate Respiratory 18 Rate Blood Pressure (mmHg) O2 Sat by Pulse Oximetry Oxygen Devices in Use Now: None Appearance: Comfortable, NAD Eyes: No Scleral Icterus Ears/Nose/Mouth/Throat: Mucous Membranes Moist Neck: NL Appearance and Movements; NL JVP Respiratory: Symmetrical Chest Expansion and Respiratory Effort, Clear to Auscultation Cardiovascular: NL Sounds; No Murmurs; No JVD, RRR, No Edema Abdominal: NL Sounds; No Tenderness; No Distention Lymphatic: No Cervical Adenopathy Extremities: No Edema, - - Calfs supple Skin: No Rash or Ulcers Neurological: Alert and Oriented x 3, NL Muscle Strength and Tone Nutrition: Taking PO's Result Diagrams: 01/28/18 05:36 01/27/18 05:40 Additional Lab and Data: Laboratory Results - last 24 hr 01/28/18 05:36 WBC 7.8 RBC 3.83 L Hgb 11.3 L Hct 34 L MCV 88 MCH 30 MCHC 34 RDW 15 Plt Count 162 MPV 8.4 Neut % (Auto) 71.7 Lymph % (Auto) 15.1 [place] % (Auto) 9.9 Eos % (Auto) 3.1 Baso % (Auto) 0.2 Absolute Neuts (auto) 5.6 Absolute Lymphs (auto) 1.2 Absolute Monos (auto) 0.8 Absolute Eos (auto) 0.2 Absolute Basos (auto) 0 Absolute Nucleated RBC 0 Nucleated RBC % 0.1 Assess/Plan/Problems-Billing Assessment: 77 year old male pmh CAD, [place], hypertension, hyperlipidema, hypothyroid, gerd; who is s/p L3-L4 TLIF who was noted to be bradycardic june operatively therefore we are consulting - Patient Problems (1) Anterolisthesis Comment: - POD #3 L3- L4 TLIF - Up walking with assistance - Management per neurosurgeon and team (2) Bradycardia Comment: - Discontinued tele - Patient has not been bradycardic and is asymptomatic (3) Hypertension Comment: - Continue meds as prescribed (4) Hyperlipidemia Comment: - Cont statin (5) CAD (coronary artery disease) Comment: - Hx of [place] with 3 stents - Per neuro; okay to restart ASA 3 to 5 days post op (6) Hypothyroid Comment: - Cont medications as prescribed (7) Abnormal CBC Comment: - Repeat CBC wnl (8) DVT prophylaxis Comment: - SCDs in place - Patient ambulating (9) Full code status Comment: - Full Code Status and Disposition: Thank you for allowing us to participate in this patient's care. We will be dry wall installations mechanic for future consulting on this patient as needed. Attending: Jayme Rodgers
[2018-01-28] MEDS: Docusate CAP* 100 MG PO SCH (20:06)
--- NOTE | 2018-01-29 | PN ---
Progress Note - Progress Note Date of Service: 01/28/18 SOAP: Subjective: []Patient was seen earlier. No events ON. Patient is doing very well. Voids, Tolerates PO well. Has brace. Objective: []VSS. Wounds s ,c, d AAOx3 DIANE, CN II-XII grossly intact Motor 5/5 all extremities Sensory grossly intact to light touch Assessment: []77 yo m POD#3 Rtr L3-4 MIS TLIF Plan: []Monitor VS, Neurochecks Encourage ambulation. Pain control. Muscle relaxants. PT DC planning. DC when pain is under control. Consider rehab eval if family support will not be adequate for patient to be able to DC home Appreciate IM care. Denis Cali MD
[2018-01-29] MEDS: oxyCODONE/Acetamin 5/325 MG* TAB PO PRN ×4 (02:06→22:04)
[2018-01-29] MEDS: Levothyroxine TAB* 100 MCG TAB PO SCH (05:43)
[2018-01-29] MEDS: Diazepam TAB(*) 5 MG PO PRN ×2 (05:43→18:02)
--- NOTE | 2018-01-29 08:21 | PN ---
Progress Note - Progress Note Date of Service: 01/29/18 SOAP: Subjective: [S/p TLIF L3-4, POD #4. Feeling well although complains of back pain. Ambulates with walker. Has difficulty getting up out of bed without use of trapeeze. Denies nausea, headache. ] Objective: [ Vital Signs: Temp Pulse Resp BP Pulse Ox 98.1 F 74 18 134/57 96 01/29/18 03:15 01/29/18 03:15 01/29/18 05:43 01/29/18 03:15 01/29/18 03:15 General: Alert and laying comfortably in bed, NAD Neuro: Motor and sensory intact. Incision: Intact, no swelling, dressing in place. ] Assessment: [Satisfactory post-op. Will likely need rehab] Plan: [1. PMRU referral 2. PT, OT 3. Encourage ambulation 4. Continue pain management]
[2018-01-29] MEDS: Ramipril CAP* 2.5 MG PO SCH (09:27)
[2018-01-29] MEDS: Omeprazole CAP* 20 MG PO SCH (09:27)
[2018-01-29] MEDS: Atorvastatin* 80 MG TAB PO SCH (09:27)
[2018-01-29] MEDS: Docusate CAP* 100 MG PO SCH ×2 (11:27→22:05)
[2018-01-29] MEDS: Magnesium Hydroxide LIQ* 30 ML UDC PO PRN (11:28)
[2018-01-30] MEDS: Diazepam TAB(*) 5 MG PO PRN (02:23)
[2018-01-30] MEDS: oxyCODONE/Acetamin 5/325 MG* TAB PO PRN ×4 (05:56→20:30)
[2018-01-30] MEDS: Levothyroxine TAB* 100 MCG TAB PO SCH (05:57)
--- NOTE | 2018-01-30 07:58 | PN ---
Progress Note - Progress Note Date of Service: 01/30/18 SOAP: Subjective: [S/p L3-4 TLIF, POD #5. Patient feeling well, complains of back pain. Able to ambulate well, has difficulty getting up out of bed. Pre-op symptoms improving. Denies headache, nausea. Pain with PO medication] Objective: [ Vital Signs: Temp Pulse Resp BP Pulse Ox 97.8 F 70 12 148/69 98 01/30/18 04:03 01/30/18 04:03 01/30/18 05:56 01/30/18 04:03 01/30/18 04:03 General: Alert and laying comfortably in bed, NAD Neuro: Motor and sensory intact. Incision: Intact, no swelling. Dressing in place. ] Assessment: [Satisfactory post-op] Plan: [1. Possible discharge to rehab today or tomorrow. 2. Encourage ambulation and up out of bed. 3. PT]
[2018-01-30] MEDS: Omeprazole CAP* 20 MG PO SCH (08:38)
[2018-01-30] MEDS: Ramipril CAP* 2.5 MG PO SCH (08:38)
[2018-01-30] MEDS: Atorvastatin* 80 MG TAB PO SCH (08:38)
[2018-01-30] MEDS: Docusate CAP* 100 MG PO SCH ×2 (08:38→20:30)
[2018-01-30] MEDS: Aspirin 81 mg CHEW TAB* 81 MG TAB.CHEW PO SCH (10:32)
--- NOTE | 2018-01-30 17:36 | PN ---
Hospitalist Progress Note Date of Service: 01/30/18 Patient's home dose of Asa 81 mg restarted and approved by neurosurg. DVT proph per neurosurg, ambulation and scds
--- NOTE | 2018-01-30 21:07 | PN ---
Progress Note - Progress Note Date of Service: 01/30/18 SOAP: Subjective: [] No events ON. Patient is doing very well. Voids, Tolerates PO well. Has brace. Objective: []VSS. Wounds s ,c, d AAOx3 DIANE, CN II-XII grossly intact Motor 5/5 all extremities Sensory grossly intact to light touch Assessment: []77 yo m POD#4 Rtr L3-4 MIS TLIF Plan: [] Monitor VS, Neurochecks Encourage ambulation. Pain control. Muscle relaxants. PT. Feels comfortable getting in and out of the bed on his own. DC planning. Appreciate IM care. Denis Cali MD
[2018-01-31] MEDS: oxyCODONE/Acetamin 5/325 MG* TAB PO PRN ×4 (01:32→14:19)
[2018-01-31] MEDS: Levothyroxine TAB* 100 MCG TAB PO SCH (05:40)
[2018-01-31] MEDS: Ramipril CAP* 2.5 MG PO SCH (08:54)
[2018-01-31] MEDS: Docusate CAP* 100 MG PO SCH (08:54)
[2018-01-31] MEDS: Atorvastatin* 80 MG TAB PO SCH (08:54)
[2018-01-31] MEDS: Omeprazole CAP* 20 MG PO SCH (08:54)
[2018-01-31] MEDS: Aspirin 81 mg CHEW TAB* 81 MG TAB.CHEW PO SCH (08:54)
--- NOTE | 2018-01-31 09:43 | PN ---
Progress Note - Progress Note Date of Service: 01/31/18 SOAP: Subjective: [S/p L3-4 TLIF, POD#6. Low back pain controlled with PO meds. Lower extremity symptoms improving. Denies headache, nausea. Ambulating with assistance of walker. Worked with PT on getting up out of bed independently.] Objective: [ Vital Signs: Temp Pulse Resp BP Pulse Ox 98.2 F 53 18 145/65 97 01/31/18 07:39 01/31/18 07:39 01/31/18 09:40 01/31/18 07:39 01/31/18 07:39 General: Alert and NAD Neuro: Motor and sensory intact. Incision: Intact and without swelling. Dressing in place. ] Assessment: [Satisfactory post-op.] Plan: [1. Discharge home today with hospital bed. 2. Discussed discharge instructions with patient.]
[2018-01-31 12:05] VITALS: BP 134/56
--- NOTE | 2018-01-31 23:07 | PN ---
Subjective Date of Service: 01/31/18 Interval History: Patient denies chest pain or shortness of breath. Denies n/v/d . denies abd pain . back pain is currently controlled Family History: Unchanged from Admission Social History: Unchanged from Admission Past Medical History: Unchanged from Admission Objective Oxygen Devices in Use Now: None Appearance: appears comfortabel sitting in the chair , no acute distress Eyes: No Scleral Icterus Ears/Nose/Mouth/Throat: Clear Oropharnyx, Mucous Membranes Moist Neck: NL Appearance and Movements; NL JVP, Trachea Midline Respiratory: Symmetrical Chest Expansion and Respiratory Effort, Clear to Auscultation Cardiovascular: NL Sounds; No Murmurs; No JVD, No Edema Abdominal: NL Sounds; No Tenderness; No Distention Extremities: No Edema, No Clubbing, Cyanosis Skin: No Rash or Ulcers, No Nodules or Sclerosis Neurological: Alert and Oriented x 3 Nutrition: Taking PO's Result Diagrams: 01/28/18 05:36 01/27/18 05:40 Additional Lab and Data: Laboratory Results - last 24 hr 01/28/18 05:36 WBC 7.8 RBC 3.83 L Hgb 11.3 L Hct 34 L MCV 88 MCH 30 MCHC 34 RDW 15 Plt Count 162 MPV 8.4 Neut % (Auto) 71.7 Lymph % (Auto) 15.1 [place] % (Auto) 9.9 Eos % (Auto) 3.1 Baso % (Auto) 0.2 Absolute Neuts (auto) 5.6 Absolute Lymphs (auto) 1.2 Absolute Monos (auto) 0.8 Absolute Eos (auto) 0.2 Absolute Basos (auto) 0 Absolute Nucleated RBC 0 Nucleated RBC % 0.1 Assess/Plan/Problems-Billing Assessment: 77 year old male pmh CAD, [place], hypertension, hyperlipidema, hypothyroid, gerd; who is s/p L3-L4 TLIF who was noted to be bradycardic june operatively therefore we are consulting - Patient Problems (1) Anterolisthesis Status: Acute Code(s): M43.10 - SPONDYLOLISTHESIS, SITE UNSPECIFIED SNOMED Code(s): 030498978 Comment: - POD #4 L3- L4 TLIF - Up walking with assistance - Management per neurosurgeon and team (2) Bradycardia Status: Acute Code(s): R00.1 - BRADYCARDIA, UNSPECIFIED SNOMED Code(s): 38873845 Comment: - Discontinued tele - Patient has not been bradycardic and is asymptomatic - called for irregular heart rate - patient asymptomatic with hx of pvc's HR 60 's patient with occassional irregular beat noted (3) Hyperlipidemia Status: Acute Code(s): E78.5 - HYPERLIPIDEMIA, UNSPECIFIED SNOMED Code(s): 00078558 Comment: - Cont statin (4) Hypertension Status: Acute Code(s): I10 - ESSENTIAL (PRIMARY) HYPERTENSION SNOMED Code(s) : 30192925 Comment: - Continue meds as prescribed (5) Hypothyroid Status: Acute Code(s): E03.9 - HYPOTHYROIDISM, UNSPECIFIED SNOMED Code(s): 69321810 Comment: - Cont medications as prescribed (6) DVT prophylaxis Status: Acute Code(s): EUQ5957 - SNOMED Code(s): 612499017 Comment: - SCDs in place - Patient ambulating (7) Full code status Status: Acute Code(s): Z78.9 - OTHER SPECIFIED HEALTH STATUS SNOMED Code(s) : 072102782 Comment: - Full Code Status and Disposition: Thank you for allowing us to participate in this patient's care. We will be civil transportation engineer for future consulting on this patient as needed.
== END 2018-01-31 14:30 | disposition home or self-care (01) | DRG 460 ==
LOC: AA 06:32 → SSU 16:39
PROVIDERS: ADMIT Neurological Surgery; ATTEND Neurological Surgery
PROC: 0SB20ZZ Excision of Lumbar Vertebral Disc, Open Approach (ICD-10-PCS; 2018-01-25)
PROC: 8E0WXBZ Computer Assisted Procedure of Trunk Region (ICD-10-PCS; 2018-01-25)
PROC: 0SG00AJ Fusion of Lumbar Vertebral Joint with Interbody Fusion Device, Posterior Approach, Anterior Column, Open Approach (ICD-10-PCS; principal; 2018-01-25 08:30)
DX: M47.26 Other spondylosis with radiculopathy, lumbar region (principal); M51.36 Other intervertebral disc degeneration, lumbar region; M51.16 Intervertebral disc disorders with radiculopathy, lumbar region; K21.9 Gastro-esophageal reflux disease without esophagitis; I10 Essential (primary) hypertension; I25.10 Atherosclerotic heart disease of native coronary artery without angina pectoris; M40.56 Lordosis, unspecified, lumbar region; J44.9 Chronic obstructive pulmonary disease, unspecified; G62.9 Polyneuropathy, unspecified; E03.9 Hypothyroidism, unspecified; I49.3 Ventricular premature depolarization; E78.5 Hyperlipidemia, unspecified; I25.2 Old myocardial infarction; Z90.49 Acquired absence of other specified parts of digestive tract; Z88.1 Allergy status to other antibiotic agents; Z91.048 Other nonmedicinal substance allergy status; Z87.891 Personal history of nicotine dependence; Z95.5 Presence of coronary angioplasty implant and graft; Z82.49 Family history of ischemic heart disease and other diseases of the circulatory system; Z82.3 Family history of stroke
CPT/HCPCS: 36415; 72100; 76001; 80048; 83735; 84443; 85025; 85060; 93005; A9270-GY; C1713; C9359; G8978-GP-CI; G8979-GP-CI; G8987-GO-CJ; G8988-GO-CJ; G8989-GO-CJ; J0690; J1100; J1170; J2001; J2250; J2270; J2704; J3010; J3475